=== PATIENT | male | born 1960 | race Caucasian/White ===

== ENCOUNTER 2019-08-17 08:00 | Outpatient (CLI) | payer OTHER ==
[2019-08-17] MEDS ORDERED: MELA3TAB56 PO (11:51)
== END 2019-08-17 23:59 | disposition home or self-care (01) ==
LOC: STAR 08:00
PROVIDERS: ATTEND Orthopaedic Surgery
DX: Z01.818 Encounter for other preprocedural examination (principal); F10.20 Alcohol dependence, uncomplicated; M17.12 Unilateral primary osteoarthritis, left knee
CPT/HCPCS: 36415; 80048; 85025; 87081; 93005

== ENCOUNTER 2019-09-01 05:59 | Observation (INO) | payer MEDICARE, OTHER ==
[2019-08-17 12:19] LABS: BASOPHILS # (AUTO) 0.02 x10^3/uL (0-0.1); BASOPHILS % (AUTO) 0 % (0-1); EOSINOPHILS # (AUTO) 0.11 x10^3/uL (0-0.4); EOSINOPHILS % (AUTO) 2 % (1-7); LYMPHOCYTES # (AUTO) 1.37 x10^3/uL (1-3.4); LYMPHOCYTES % (AUTO) 20 % (22-44); MD NO; MEAN CORPUSCULAR HEMOGLOBIN 29.9 pg (27.5-34.5); MEAN CORPUSCULAR HGB CONC 33.4 g/dL (33.2-36.2); MEAN CORPUSCULAR VOLUME 89.3 fL (81-97); MEAN PLATELET VOLUME 8.5 fL (7.4-10.4); MONOCYTES # (AUTO) 0.41 x10^3/uL (0.2-0.8); MONOCYTES % (AUTO) 6 % (2-9); NEUTROPHILS # (AUTO) 4.88 x10^3/uL (1.8-6.8); NEUTROPHILS % (AUTO) 72 % (42-75); PLATELET COUNT 246 x10^3/uL (130-400); RED BLOOD COUNT 5.22 x10^6/uL (4.38-5.82); RED CELL DISTRIBUTION WIDTH 12.9 % (9.4-14.8)
[2019-08-17 12:27] LABS: ANION GAP 4 mmol/L (5-15); CALCIUM 8.7 mg/dL (8.5-10.1); CHLORIDE 106 mmol/L (98-107)
[2019-08-17 12:28] LABS: CREATININE 0.91 mg/dL (0.7-1.3)
[~2019-09-01] VITALS: Ht 177.8 cm; Wt 80.2 kg
[~2019-09-01 05:59] MED LIST: MELA3TAB56 PO
[2019-09-01] MEDS ORDERED: LACTATED RINGERS 1,000 ML IV SCH ×2 (06:28→11:00)
[2019-09-01] MEDS ORDERED: CLIN300C8 PO (06:29)
[2019-09-01] MEDS ORDERED: ROPIvacaine/PF 0.2%, 20 ML ONE (06:53)
[2019-09-01] MEDS ORDERED: TRANEXAMIC ACID 100 MG/ML, 10ML ONE (06:53)
[2019-09-01] MEDS ORDERED: VANCOMYCIN 1,000 MG ONE (06:53)
[2019-09-01] MEDS ORDERED: KETOROLAC 60 MG/2 ML ONE (06:53)
[2019-09-01] MEDS ORDERED: EPINEPHRINE 1 MG/ML, 1ML ONE (06:53)
[2019-09-01] MEDS ORDERED: MIDAZOLAM 1 MG/ML, 2ML ONE (07:05)
[2019-09-01] MEDS ORDERED: FENTANYL PF 250 MCG/5ML ONE (07:06)
[2019-09-01] MEDS ORDERED: ACETAMINOPHEN 500 MG TABLET ONE (07:09)
[2019-09-01] MEDS ORDERED: GABAPENTIN 300 MG CAPSULE ONE (07:09)
[2019-09-01] MEDS ORDERED: PROPOFOL 50 ML ONE ×2 (07:36→08:16)
[2019-09-01] MEDS ORDERED: DIAZEPAM 5 MG/ML, 2ML IVPush PRN (08:00)
[2019-09-01] MEDS ORDERED: MEPERIDINE/PF 25MG/0.5ML IVPush PRN (08:00)
[2019-09-01] MEDS ORDERED: ACETAMINOPHEN 325 MG TABLET PO PRN (08:00)
[2019-09-01] MEDS ORDERED: KETOROLAC 30 MG/1 ML IV PRN (08:00)
[2019-09-01] MEDS ORDERED: OXYcodone 5 MG/5 ML ORAL.SOL UDC PO PRN (08:00)
[2019-09-01] MEDS ORDERED: hydrALAzine 20 MG/ML, 1ML IV PRN (08:00)
[2019-09-01] MEDS ORDERED: PROMETHAZINE 25 MG/ML, 1ML IV PRN (08:00)
[2019-09-01] MEDS ORDERED: ALBUTEROL SULFATE 2.5 MG/3 ML NPPB PRN (08:00)
[2019-09-01] MEDS ORDERED: HYDROmorphone 2 MG/ML, 1ML IVPush PRN (08:00)
[2019-09-01] MEDS ORDERED: LABETALOL 5MG/ML, 20ML IV PRN (08:00)
[2019-09-01] MEDS ORDERED: GLYCOPYRROLATE 0.2MG/1ML, 5ML ONE (08:49)
[2019-09-01] MEDS ORDERED: CEFAZOLIN 1,000 MG ONE (08:49)
[2019-09-01] MEDS ORDERED: ONDANSETRON 2MG/ML, 2ML ONE (08:49)
[2019-09-01] MEDS ORDERED: ROCURONIUM 10MG/ML,5ML ONE (08:49)
[2019-09-01] MEDS ORDERED: NEOSTIGMINE 1 MG/ML, 10ML ONE (08:49)
[2019-09-01] MEDS ORDERED: PROPOFOL 10 MG/ML, 20ML ONE (08:49)
[2019-09-01] MEDS ORDERED: DEXAMETHASONE 4 MG/ML, 1ML ONE (08:49)
[2019-09-01] MEDS ORDERED: SUCCINYLCHOLINE 20 MG/ML, 10ML ONE (08:49)
[2019-09-01] MEDS ORDERED: DIPHENHYDRAMINE 25 MG CAPSULE PO PRN (09:00)
[2019-09-01] MEDS ORDERED: MULTIVITAMINS/MINERALS TABLET PO SCH (09:00)
[2019-09-01] MEDS ORDERED: SENNA/DOCUSATE TABLET PO PRN (09:00)
[2019-09-01] MEDS ORDERED: ACETAMINOPHEN 500 MG TABLET PO SCH (09:00)
[2019-09-01] MEDS ORDERED: OXYcodone IR 5MG TABLET PO PRN ×2 (09:00)
[2019-09-01] MEDS ORDERED: PREGABALIN 75 MG CAPSULE PO SCH (09:00)
[2019-09-01] MEDS ORDERED: ONDANSETRON 2MG/ML, 2ML IVPush PRN (09:00)
[2019-09-01] MEDS ORDERED: FENTANYL PF 100 MCG/2ML ONE ×2 (09:25→10:03)
[2019-09-01] MEDS ORDERED: OXYcodone 5 MG/5 ML ORAL.SOL UDC ONE (09:26)
[2019-09-01] MEDS ORDERED: TRANEXAMIC ACID 1,000 MG in SODIUM CHLORIDE 0.9% 100 ML IVPB ONE (09:30)
[2019-09-01] MEDS: FENTANYL PF 100 MCG/2ML IV PRN ×5 (09:30→10:05)
[2019-09-01 10:45] VITALS: BP 136/84
[2019-09-01] MEDS ORDERED: ONDANSETRON ODT 4 MG PO PRN (11:00)
[2019-09-01] MEDS ORDERED: HYDROmorphone 1 MG/ML, 1ML INJ IVPush PRN (11:00)
[2019-09-01] MEDS ORDERED: CLINDAMYCIN 300 MG CAPSULE PO SCH (11:00)
[2019-09-01 14:30] VITALS: BP 136/76
[2019-09-01] MEDS ORDERED: CEFAZOLIN PMX 1GM/50ML 50 ML IVPB SCH (17:00)
[2019-09-01] MEDS ORDERED: MELATONIN 3 MG TABLET PO SCH (21:00)
[2019-09-02] MEDS ORDERED: DEXAMETHASONE 4 MG/ML, 1ML IVPush ONE (06:00)
[2019-09-02] MEDS ORDERED: ASPIRIN 81 MG TABLET EC PO SCH (06:00)
== END 2019-09-01 16:20 | disposition home or self-care (01) ==
LOC: OUT 05:59 → ORIP 08:56 → 4NE 10:41 → DCLOUNGE 16:11
PROVIDERS: ADMIT Orthopaedic Surgery; ATTEND Orthopaedic Surgery
DX: M17.12 Unilateral primary osteoarthritis, left knee (principal); F10.10 Alcohol abuse, uncomplicated; Z79.899 Other long term (current) drug therapy
CPT/HCPCS: 27447; 73560; 97110; 97161; G0378; J0171; J0690; J1100; J1885; J2250; J2405; J2704; J2795; J3010; J7120; 36415; 80048; 85025; 87081; 93005; C1713; J2710; J3370; C1776; J0330